=== PATIENT | female | born 1975 | race Caucasian/White ===

== ENCOUNTER 2018-03-04 19:21 | Emergency (ER) | payer OTHER, MEDICAID ==
[2018-03-04] MEDS: FAMOTIDINE 20 MG TAB PO (20:08)
[2018-03-04] MEDS: LIDOCAINE/MYLANTA 40 ML BTL PO (20:08)
== END 2018-03-04 20:58 | disposition home or self-care (01) ==
LOC: FTE 19:21
DX: H61.21 Impacted cerumen, right ear (principal); R10.13 Epigastric pain; H66.92 Otitis media, unspecified, left ear; I10 Essential (primary) hypertension
CPT/HCPCS: 99283; Z7502

== ENCOUNTER 2019-01-29 08:48 | Day surgery (SDC) | payer OTHER ==
[2019-01-29] MEDS ORDERED: MIDAZOLAM 1 MG/ML 2 ML INJ ×2 (11:28)
[2019-01-29] MEDS ORDERED: FENTAnyl 50 MCG/ML VIAL (11:28)
== END 2019-01-29 11:35 | disposition home or self-care (01) ==
LOC: GIL 08:48
DX: R19.4 Change in bowel habit (principal); K64.8 Other hemorrhoids; D12.5 Benign neoplasm of sigmoid colon; K63.89 Other specified diseases of intestine; D12.0 Benign neoplasm of cecum; I10 Essential (primary) hypertension
CPT/HCPCS: 45385; 84703; 88305